=== PATIENT | male | born 2000 | race Caucasian/White ===

== ENCOUNTER → 2023-09-21 11:11 | Outpatient (REF) | payer BC, SELFPAY | LOC: HWRAD 11:11 | PROVIDERS: ATTENDING PHYSICIAN Family Medicine | DX: N50.812 Left testicular pain (principal) | CPT/HCPCS: 76870; 93976 ==

== ENCOUNTER 2024-10-29 09:39 | Emergency (ER) | payer BC, SELFPAY ==
[2024-10-29 09:41] VITALS: BP 110/79
--- NOTE | 2024-10-29 10:01 | ED.GENMED ---
History of Present Illness
General
Chief Complaint: Skin Problem
Time Seen by Provider: 10/29/24 10:01
History of Present Illness
History of Present Illness:
TIME OF INITIAL ENCOUNTER: 10:05 AM
HPI: The patient presents with painless purple spots to the toes. Last night one of the lesions had overlying skin that you sloughed off. He saw his primary the other day he was concerned about a vascular issue. He has no significant pain. Mom
states that when he was in the waiting room the feet looked 'purpleish' but now are improved while supine on the stretcher. He has had no fevers. 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
EXAM:
GENERAL: Well appearing in no distress
HEENT: Moist oral mucosa
CARDIOVASCULAR: No murmurs, normal heart rate, regular rhythm, No chest wall tenderness
PULMONARY: No respiratory distress, breath sounds are clear and equal
ABDOMEN: Soft with no peritoneal signs, no tenderness
NEUROLOGIC: Excellent strength all extremities, no coordination deficits
PSYCHIATRIC: Appropriate mental status, normal insight and judgement
EXTREMITIES: The patient has strong bilateral femoral and popliteal pulses, he has dopplerable PT pulses bilaterally however I was unable to Doppler DP pulses bilaterally
SKIN: There are several subcentimeter purple macules to the toes bilaterally, there is some sloughing of the dermal layer to the left great toe
NUMBER AND COMPLEXITY OF PROBLEMS ADDRESSED AT THE ENCOUNTER
� Chronic conditions affecting care: Seizure disorder, has had right calf melanoma removal 1 month ago, flatfeet
� Acute Exacerbation and/or Progression of Chronic Illness: This is an acute problem
� Differential Diagnosis includes: Vasculitis, arterial insufficiency, septic emboli, nonspecific dermatitis, pemphigus vulgaris/bullous pemphigoid very unlikely
AMOUNT AND/OR COMPLEXITY OF DATA TO BE REVIEWED AND ANALYZED
� I performed an independent evaluation of and my interpretation is:
EKG:
CT:
X-rays:
Laboratory Studies: White count and hemoglobin are normal, C-reactive protein is less than 5, ANNEMARIE screen pending, initial chemistries unremarkable. COVID-negative. Blood cultures pending.
Other: Arterial ultrasound shows no arterial vascular insufficiency
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
� Clinical information was obtained by an independent historian: I spoke to mother at bedside
� Prescriptions/Medications Considered but not given:
� Further testing considered but not performed:
RISK OF COMPLICATIONS AND/OR MORBIDITY OR MORTALITY OF PATIENT MANAGEMENT
� Social determinants of health affecting care: Lives at home
� Discussion with other providers: Discussed case with Dr. Camp who recommends arterial ultrasound bilaterally
� Escalation of care including admission/observation vs risk of discharge considered: Arterial ultrasound obtained. Blood work is unremarkable including normal CRP. ANNEMARIE is pending.
ANY OTHER UPDATES:
2:40 PM: The patient's clinical condition remains unchanged. He is well-appearing. Lab work is unremarkable. ANNEMARIE is pending. I also sent message to Dr. Fragoso hoping for close rheumatologic follow-up as well. She said that he could follow-up in
her office.
Phy Exam
Physical Exam
Physical Exam:
See HPI
Course
Orders/Labs/Results
Orders:
Orders
10/29/24 10:30
Peripheral Arterial US [US Periph Art LOWER Ext w TRISTIN] Urgent
Comment:
Reason For Exam: unable to doppler b/l DP; spoke to Zoë
10/29/24 10:48
ANNEMARIE, IgG Reflex to HEp-2 [S] Urgent
COVID-19 Antigen Urgent
Source: Nasal Swab
CRP [C-Reactive Protein] Urgent
Complete Blood Count/With Diff Urgent
Comprehensive Metabolic Panel Urgent
ESR [Erythrocyte Sed Rate] Urgent
Lactic Acid Q4H
Comment: CANCEL 2nd LACTIC ACID IF 1st LACTIC ACID IS LESS THAN 2
Blood Culture Q30M
LONNIE Source: Blood/Venous
Specimen Description:
10/29/24 12:31
Blood Culture Q30M
LONNIE Source: Blood/Venous
Specimen Description:
Abnormal Lab Results
10/29/24
10:48
RBC 4.68 L 10^6/uL
(4.70-6.10)
Monocytes % 9.6 H %
(1.7-9.3)
Lactic Acid 0.6 L mmol/L
(0.7-2.0)
AST 14 L U/L
(17-59)
10/29/24 10:48
10/29/24 10:48
Vital Signs
Initial and Last Documented VS:
Initial Vital Signs
Temp Pulse Resp BP Pulse Ox
36.6 C 76 16 110/79 98
10/29/24 09:41 10/29/24 09:41 10/29/24 09:41 10/29/24 09:41 10/29/24 09:41
Last Documented Vital Signs
Temp Pulse Resp BP Pulse Ox
36.6 C 76 16 110/79 98
10/29/24 09:41 10/29/24 09:41 10/29/24 09:41 10/29/24 09:41 10/29/24 09:41
*Critical Care Note
Total Time (30-74mins, 75-104mins- exclusive of procedures): Not Applicable
ED Attending Note
-
Portions of this chart may have been created with voice recognition software.� Occasional wrong word or��sound alike� substitutions may have occurred due to the inherent limitations of voice recognition software.
Discharge Plan
Departure
Patient Disposition: Home (Routine Discharge)
Date of Disposition: 10/29/24
Time of Disposition: 14:39
Patient with high blood pressure during this ER visit?: Yes
Discharge Problem:
Skin lesions
Instructions: Vasculitis (DC)
Referrals:
Won Ray DO [Family Provider] -
Linda Fragoso MD [Active] - Next open appointment
Activity Restrictions/Additional Instructions:
The cause of your symptoms is unclear. I did have some trouble finding the dorsalis pedis pulse on each foot therefore an ultrasound was obtained which showed that you do have good blood flow to the arteries of your lower extremities on both sides.
Your white blood cell count and hemoglobin levels are normal, kidney function is normal, lactic acid is normal, C-reactive protein is normal, liver numbers are normal, ANNEMARIE testing is pending. COVID test was negative. I notified Dr. Fragoso,
surfboard designer that you would be calling her office for follow-up. Blood cultures are currently pending looking for signs of any bacterial bloodstream infection.
Interventions
Interventions:
*Risk Screen - Suicide Last Done: 10/29/24 09:41
*Neglect/Abuse Screening Last Done: 10/29/24 09:41
Discharge Date and Time
Print Language: SERBIAN
[2024-10-29 10:23] VITALS: BMI 24.9
[2024-10-29 11:15] LABS: % Basophils 0.6 % (0-2); % Eosinophils 2.6 % (0-6); % Immature Granulocytes 0.2 % (0-0.5); % Lymphocytes 29.5 % (20.5-51.1); % Monocytes 9.6 % (1.7-9.3); % Neutrophils 57.5 % (42.2-75.2); Absolute Eosinophils 0.1 10^3/uL (0-0.7); Absolute Lymphocytes 1.5 10^3/uL (1.2-3.4); Absolute Monocytes 0.5 10^3/uL (0.1-0.6); Absolute Neutrophils 2.9 10^3/uL (1.4-6.5); Hematocrit 40.1 % (39.0-52.0); Mean Corp Hgb Conc. 34.9 g/dL (33.0-37.0); Mean Corpuscular Hgb 29.9 pg (27.0-31.0); Mean Corpuscular Volume 85.7 fL (80.0-94.0); Mean Platelet Volume 9.1 fL (7.4-10.4); Nucleated Red Blood Cells % 0 % (-); Platelet Count 248 10^3/uL (130-400); Red Blood Cell Count 4.68 10^6/uL (4.70-6.10); Red Cell Dist. Width 13.1 % (11.5-14.5)
[2024-10-29 11:16] LABS: Lactic Acid 0.6 mmol/L (0.7-2.0)
[2024-10-29 11:22] LABS: ALT (SGPT) 15 U/L (0-50); AST (SGOT) 14 U/L (17-59); Albumin 4.5 g/dl (3.5-5.0); Alkaline Phosphatase 66 U/L (38-126); Blood Urea Nitrogen 15 mg/dl (9-20); Calcium 9.6 mg/dl (8.4-10.2); Carbon Dioxide 28 mmol/L (22-30); Chloride 104 mmol/L (98-107); Estimated Creatinine Clearance > 125 ml/min; Glucose 99 mg/dl (70-99); Potassium 4.1 mmol/L (3.5-5.1); Sodium 140 mmol/L (135-145); Total Bilirubin 0.8 mg/dl (0.2-1.3); Total Protein 6.8 g/dl (6.3-8.2); eGFR > 60.00
[2024-10-29 11:25] LABS: C-Reactive Protein < 5.00 mg/L (0.0-10.00)
[2024-10-29 11:28] LABS: COVID-19 Antigen Negative (Negative)
[2024-10-29 12:29] LABS: Erythrocyte Sed Rate 2 mm/hour (0-20)
[2024-11-01 01:29] LABS: ANA, IgG Reflex to HEp-2 None Detected (None Detected)
== END 2024-10-29 14:50 | disposition home or self-care (01) ==
LOC: EMR 09:39
PROVIDERS: EMERGENCY PHYSICIAN Emergency Medicine; FAMILY PHYSICIAN Family Medicine
DX: L98.9 Disorder of the skin and subcutaneous tissue, unspecified (principal)
CPT/HCPCS: 99284; 80053; 83605; 85025; 85652; 86038; 86140; 87040; 87811; 93922; 93925